=== PATIENT | female | born 1950 | race African-American/Black ===

== ENCOUNTER 2022-06-09 11:34 | Emergency (ER) | payer OTHER ==
[~2022-06-09] VITALS: Ht 170.2 cm; Wt 70.0 kg
[2022-06-09] MEDS ORDERED: NITROGLYCERIN 0.4MG TABLET SL SL PRN (12:00)
[2022-06-09 12:28] LABS: HEMATOCRIT. 24.7 % (36.0-48.0); HEMOGLOBIN. 8.3 g/dL (12.0-16.0); MEAN CORPUSCULAR HEMOGLOBIN 35.3 pg (28.0-32.0); MEAN CORPUSCULAR VOLUME 105.3 fL (81.0-99.0); PLATELET 370 x1000/uL (130-400); RED BLOOD CELL COUNT 2.35 mill/uL (4.2-5.4); RED CELL DISTRIBUTION WIDTH 19.9 % (11.6-14.6)
[2022-06-09 12:36] LABS: CHLORIDE 114 mEq/L (98-107)
[2022-06-09 14:02] LABS: NUCLEATED RED BLOOD CELLS 1 /100 WBC
[2022-06-09 14:03] LABS: PLATELET ESTIMATE NORMAL
[2022-06-09] MEDS ORDERED: FUROSEMIDE 40MG/4ML VIAL IV ONE (14:15)
[2022-06-09] MEDS ORDERED: POTASSIUM CHLORIDE 20MEQ/PACKET PO ONE (15:00)
[2022-06-09] MEDS ORDERED: KETOROLAC 15MG/ML VIAL IV STA (17:49)
[2022-06-09] MEDS ORDERED: KETOROLAC 15MG/ML VIAL IV ONE (18:00)
[2022-06-09 18:04] VITALS: BP 148/66
== END 2022-06-09 18:03 | disposition short-term general hospital (02) ==
LOC: ER 11:34 → EDBEDREQ 12:15 → ER 18:03
DX: R06.02 Shortness of breath (principal); I10 Essential (primary) hypertension; Z20.822 Contact with and (suspected) exposure to COVID-19
CPT/HCPCS: 36415; 71045; 80053; 83880; 84484; 85025; 87426; 93005; 96374; 96375; 99291; C9803; J1885; J1940